=== PATIENT | male | born 1995 | race Two or more races ===

== ENCOUNTER 2024-12-02 12:45 | Inpatient (IN) | payer MEDICAID ==
[~2024-12-02] VITALS: Ht 170.2 cm; Wt 53.5 kg
[2024-12-02] MEDS ORDERED: ACETAMINOPHEN ES 500 MG TABLET ONE (13:21)
[2024-12-02] MEDS: IV NS 0.9% 1,000 ML BAG IV ONE (13:27)
[2024-12-02] MEDS: ACETAMINOPHEN ES 500 MG TABLET PO ONE (13:29)
[2024-12-02 14:00] LABS: CALCIUM, SERUM 8.6 mg/dL (8.5-10.1); CREATININE 0.9 mg/dL (0.6-1.3); SODIUM SERUM 132 mmol/L (136-145); UREA NITROGEN, BLOOD 10 mg/dL (7-18)
[2024-12-02 14:04] LABS: INR 1.53 (0.91-1.10)
[2024-12-02 14:05] LABS: RED BLOOD CELL COUNT(AUTO) 2.29 MIL/uL (4.5-6.0); RED CELL DISTRIBUTION WIDTH 22.2 % (11.5-15.0)
[2024-12-02 14:06] LABS: ASPARTATE AMINOTRANSFERASE 49 U/L (15-37); LACTIC ACID 1.7 mmol/L (0.4-2.0); TOTAL PROTEIN, SERUM 6.8 g/dL (6.4-8.2)
[2024-12-02 14:07] LABS: PLATELET COUNT (AUTO) 12 K/uL (150-450); WHITE BLOOD COUNT (AUTO) 1.2 K/uL (4.3-11.0)
[2024-12-02] MEDS: CEFEPIME 1 GM in IV D5W 50 ML IV ONE (14:30)
[2024-12-02] MEDS: VANCOMYCIN HCL 1.25 GM in IV D5W 250 ML IV SCH (15:00)
[2024-12-02] MEDS ORDERED: DOSING PER PHARMACY-CEFEPIME IVPB XX PRN (15:30)
[2024-12-02] MEDS ORDERED: MAG HYDROX/AL HYDROX/SIMETH 30 ML UDC PO PRN (15:30)
[2024-12-02] MEDS ORDERED: MAGNESIUM HYDROXIDE 30 ML UDC PO PRN (15:30)
[2024-12-02] MEDS ORDERED: Z GUARD REMEDY 4 OZ OINT TP PRN (15:30)
[2024-12-02] MEDS ORDERED: ONDANSETRON HCL/PF 4 MG/2 ML VIAL IVP PRN (15:30)
[2024-12-02] MEDS ORDERED: DOSING PER PHARMACY-VANCOMYCIN IV XX PRN (15:30)
[2024-12-02 15:33] LABS: APPEARANCE,URINE CLEAR (CLEAR); BLOOD, URINE Trace-intact Ery/uL (NEGATIVE); LEUKOCYTE ESTERASE ,URINE Negative (NEGATIVE); NITRITE, URINE NEGATIVE (NEGATIVE); UGLUCOSE Negative (NEGATIVE)
[2024-12-02 15:36] LABS: ADD URINE CULTURE NO; SQUAMOUS EPITHELIAL CELL,UR None Seen /HPF (None Seen)
[2024-12-02] MEDS ORDERED: BICT1TAB PO (16:51)
[2024-12-02 19:00] VITALS: BP 111/77; O2SAT 100
[2024-12-02] MEDS: IV NS 0.9% 1,000 ML IV SCH (19:59)
[2024-12-02 20:00] VITALS: BP 106/73; TEMP 97.4; O2SAT 100
[2024-12-02 20:30] LABS: LYMPHOCYTES % (MANUAL) 16 % (16-48); MONOCYTES % (MANUAL) 4 % (0-11.0); NEUTROPHILS % (MANUAL) 80 (42-76); PLATELET ESTIMATE DECRE
[2024-12-02 21:00] VITALS: BP 91/66; O2SAT 100
[2024-12-02] MEDS: CEFEPIME 2 GM in IV D5W 100 ML IV SCH (21:20)
[2024-12-02] MEDS: FLUCONAZOLE (100 MG) 100 MG TABLET PO SCH (21:26)
[2024-12-02 22:00] VITALS: BP 99/62; O2SAT 100
[2024-12-02] MEDS: VANCOMYCIN 1 GM in IV D5W 250 ML IV SCH (22:27)
[2024-12-02 23:00] VITALS: BP 93/64; O2SAT 100
[2024-12-03] VITALS (12 sets, daily range): BP systolic 88–104; BP diastolic 50–72; TEMP 98.2–101; O2SAT 99–100
[2024-12-03] MEDS: ACETAMINOPHEN 325 MG TABLET PO PRN (01:03)
[2024-12-03 02:50] LABS: RED CELL DISTRIBUTION WIDTH 22.0 % (11.5-15.0)
[2024-12-03 02:59] LABS: CALCIUM, SERUM 7.6 mg/dL (8.5-10.1); CREATININE 0.7 mg/dL (0.6-1.3); PHOSPHORUS 2.5 mg/dL (2.5-4.9); SODIUM SERUM 135.0 mmol/L (136-145); UREA NITROGEN, BLOOD 9.0 mg/dL (7-18)
[2024-12-03 03:02] LABS: RED BLOOD CELL COUNT(AUTO) 1.91 MIL/uL (4.5-6.0)
[2024-12-03 03:05] LABS: PLATELET COUNT (AUTO) 10 K/uL (150-450); WHITE BLOOD COUNT (AUTO) 0.8 K/uL (4.3-11.0)
[2024-12-03 04:54] LABS: LYMPHOCYTES % (MANUAL) 29 % (16-48); MONOCYTES % (MANUAL) 13 % (0-11.0); NEUTROPHILS % (MANUAL) 58 (42-76); PLATELET ESTIMATE DECREASED
[2024-12-03] MEDS: ACYCLOVIR 200 MG CAPSULE PO SCH (08:40)
[2024-12-03] MEDS ORDERED: MAGNESIUM OXIDE 400 MG TABLET PO ONE (10:00)
[2024-12-04] MEDS ORDERED: BIKTARVY 50-200-25 MG TABLET NF PO SCH
[2024-12-04 06:07] LABS: *BANDS 3 % (Not Estab.); *BASOS 0 % (Not Estab.); *BASOS, ABSOLUTE 0.0 x10E3/uL (0.0-0.2); *COMMENTS Note: (.); *EOS 0 % (Not Estab.); *EOS, ABSOLUTE 0.0 x10E3/uL (0.0-0.4); *HCT 22.2 % (37.5-51.0); *HGB 7.1 g/dL (13.0-17.7); *LYMPHOCYTES 40 % (Not Estab.); *LYMPHS, ABSOLUTE 0.5 x10E3/uL (0.7-3.1); *MCH 29.5 pg (26.6-33.0); *MCHC 32.0 g/dL (31.5-35.7); *MCV 92 fL (79-97); *MONOCYTES 9 % (Not Estab.); *MONOS, ABSOLUTE 0.1 x10E3/uL (0.1-0.9); *NEUTROPHILS 44 % (Not Estab.); *NEUTROPHILS, ABSOLUTE 0.6 x10E3/uL (1.4-7.0); *RBC 2.41 x10E6/uL (4.14-5.80); *RDW 19.9 % (11.6-15.4); *WBC 1.3 x10E3/uL (3.4-10.8)
[2024-12-04 06:25] LABS: *PLT 8 x10E3/uL (150-450)
[2024-12-04 09:12] LABS: *% CD 4 POS. LYMPH 18.7 % (30.8-58.5); *% CD 8 POS. LYMPH 28.0 % (12.0-35.5); *ABSOLUTE CD 4 HELPER 94 /uL (359-1519); *ABSOLUTE CD 8 SUPPRESSOR 140 /uL (109-897); *CD4/CD8 RATIO 0.67 (0.92-3.72)
== END 2024-12-03 11:04 | disposition left against medical advice (07) | DRG 720 ==
LOC: ER 12:49 → ICU 16:48
PROVIDERS: ADMIT Internal Medicine; ATTEND Nurse Practitioner Acute Care
DX: A41.9 Sepsis, unspecified organism (principal); R64 Cachexia; E44.0 Moderate protein-calorie malnutrition; D61.818 Other pancytopenia; D84.9 Immunodeficiency, unspecified; E88.09 Other disorders of plasma-protein metabolism, not elsewhere classified; D69.6 Thrombocytopenia, unspecified; E86.0 Dehydration; E87.1 Hypo-osmolality and hyponatremia; E83.42 Hypomagnesemia; Z79.899 Other long term (current) drug therapy; Z85.72 Personal history of non-Hodgkin lymphomas; Z92.21 Personal history of antineoplastic chemotherapy; R65.20 Severe sepsis without septic shock; Z68.1 Body mass index [BMI] 19.9 or less, adult; D64.9 Anemia, unspecified
CPT/HCPCS: 36415; 71045-TC; 80048-TC; 80076-TC; 81001; 83605-TC; 83735-TC; 84100-TC; 84484-TC; 85027-TC; 85730-TC; 86360; 86850-TC; 87040-TC; 87081-TC; 87086-TC; A4223; G0378; J0692; J3373; J7030; J7040; J7050; J7060

== ENCOUNTER 2025-01-08 15:59 | Emergency (ER) | payer MEDICAID ==
[~2025-01-08] VITALS: Ht 170.2 cm; Wt 54.4 kg
[~2025-01-08 15:59] MED LIST: BICT1TAB PO
[2025-01-08] MEDS: IV NS 0.9% 1,000 ML BAG IV ONE (17:14)
[2025-01-08 17:22] LABS: CALCIUM, SERUM 8.7 mg/dL (8.5-10.1); CREATININE 0.5 mg/dL (0.6-1.3); RED BLOOD CELL COUNT(AUTO) 2.96 MIL/uL (4.5-6.0); RED CELL DISTRIBUTION WIDTH 29.3 % (11.5-15.0); SODIUM SERUM 137 mmol/L (136-145); UREA NITROGEN, BLOOD 14 mg/dL (7-18); WHITE BLOOD COUNT (AUTO) 11.0 K/uL (4.3-11.0)
[2025-01-08 17:25] LABS: PLATELET COUNT (AUTO) 53 K/uL (150-450)
[2025-01-08 17:29] LABS: INR 0.99 (0.91-1.10)
[2025-01-08 17:30] LABS: LACTIC ACID 1.1 mmol/L (0.4-2.0)
[2025-01-08 17:34] LABS: ALCOHOL, BLOOD < 3 mg/dL (0-10); ASPARTATE AMINOTRANSFERASE 32 U/L (15-37); TOTAL PROTEIN, SERUM 6.0 g/dL (6.4-8.2)
[2025-01-08 17:40] LABS: BASOPHILS % (MANUAL) 0 % (0.0-2.0); EOSINOPHILS % (MANUAL) 0 % (0-4); LYMPHOCYTES % (MANUAL) 13 % (16-48); MONOCYTES % (MANUAL) 8 % (0-11.0); NEUTROPHILS % (MANUAL) 79 (42-76); PLATELET ESTIMATE DECREASED
[2025-01-08 17:48] LABS: BLOOD, URINE NEGATIVE Ery/uL (NEGATIVE); LEUKOCYTE ESTERASE ,URINE NEGATIVE (NEGATIVE); NITRITE, URINE NEGATIVE (NEGATIVE); UGLUCOSE NEGATIVE (NEGATIVE)
[2025-01-08 17:49] LABS: APPEARANCE,URINE SLIGHTLY CLOUDY (CLEAR)
[2025-01-08 17:58] LABS: URINE AMORPHOUS PHOSPHATES Many /HPF (None Seen)
[2025-01-08 18:00] LABS: ADD URINE CULTURE NO; AMPHETAMINE, URINE NEGATIVE (NEGATIVE); BARBITURATE, URINE NEGATIVE (NEGATIVE); BENZODIAZEPINE, URINE NEGATIVE (NEGATIVE); COCCAINE, URINE NEGATIVE (NEGATIVE); OPIATE, URINE NEGATIVE (NEGATIVE)
[2025-01-08 18:01] LABS: CANNABINOID, URINE POSITIVE (NEGATIVE); SQUAMOUS EPITHELIAL CELL,UR None Seen /HPF (None Seen)
[2025-01-08] MEDS ORDERED: AMOX-430 PO (19:27)
[2025-01-08] MEDS ORDERED: CEFTRIAXONE 1GM BAG (ER ONLY) 1 GM/50 ML PIGGYBACK IV ONE (19:30)
[2025-01-08] MEDS: CEFTRIAXONE 1 G in IV D5W 50 ML IV ONE (19:57)
[2025-01-09 00:10] VITALS: BP 103/73; TEMP 98.3; O2SAT 97
== END 2025-01-09 00:10 | disposition home or self-care (01) ==
LOC: ER 16:03
DX: G40.909 Epilepsy, unspecified, not intractable, without status epilepticus (principal); J18.9 Pneumonia, unspecified organism; J90 Pleural effusion, not elsewhere classified; Z53.29 Procedure and treatment not carried out because of patient's decision for other reasons; Z85.71 Personal history of Hodgkin lymphoma; Z85.72 Personal history of non-Hodgkin lymphomas; Z86.2 Personal history of diseases of the blood and blood-forming organs and certain disorders involving the immune mechanism
CPT/HCPCS: 99285; 96365; 96361; 93005; 71045; 70450; 84145; 85027; 80048; 87040 ×2; 87086; 83605; 80076; 85007; 81001; 36415; 85730; 80143; 80320; 80307; J0696; J7060; J7030; G0480